=== PATIENT | female | born 1965 ===

== ENCOUNTER 2016-08-15 06:41 | Day surgery (SDC) | payer BC ==
[2016-08-14 10:33] VITALS: BMI 38.5
[2016-08-15] MEDS ORDERED: Lactated Ringer's 1,000 ML IV ONE (09:20)
[2016-08-15] MEDS ORDERED: Midazolam 2 MG/2 ML VIAL ONE (09:23)
[2016-08-15] MEDS ORDERED: Propofol 10 mg/ml Inj (20 ML) ONE (09:23)
--- NOTE | 2016-08-15 10:01 | PCM.SURG1 ---
Surgeon's Initial Post Op Note - Surgeon's Notes Surgeon: zahida Bean mD Electric Meter Tester: none Type of Anesthesia: General LMA Pre-Operative Diagnosis: Abnormla uteirne bleeding Operative Findings: 10-12 week size enlarged uteurs, anterverted, bilateral ostial visuzlated, enlarged submucodsal myoma 100% protruding into cavity 6cm+. Fluid deficits 2000ml, urine output 30cc clear yellow urine Post-Operative Diagnosis: Submucosal myoma, abnormal uterine bleeding Operation Performed: Hysteroscopic myomecotmy, Fractional dilatin and currettage Specimen/Specimens Removed: endocervical currettings, endometrial currettings/ submucosal myoma Estimated Blood Loss: EBL {In ML}: 10 Blood Products Given: N/A Drains Used: No Drains Post-Op Condition: Good Date of Surgery/Procedure: 08/15/16 Time of Surgery/Procedure: 09:25
[2016-08-15 10:36] VITALS: O2SAT 100
[2016-08-15 11:36] VITALS: BP 130/52; PULSE 79; RESP 18; TEMP 96.7
--- NOTE | 2016-08-15 13:08 | OP ---
PROCEDURE DATE: 08/15/2016 SURGEON: Dr. Alexus Bean. MATERIAL EXPEDITER: None. TYPE OF ANESTHESIA: General LMA. PREOPERATIVE DIAGNOSIS: Abnormal uterine bleeding. POSTOPERATIVE DIAGNOSES: Abnormal uterine bleeding, submucosal myoma. OPERATIVE FINDINGS: Ten week size, enlarged uterus, anteverted. Bilateral ostia visualized. A larg e submucosal myoma 100% protruding into the cavity 6 cm plus. FLUID DEFICIT: 2000 mL. URINE OUTPUT: 30 mL of clear yellow urine. OPERATION PERFORMED: Hysteroscopic myomectomy, fractional dilation and curettage. SPECIMEN REMOVED: Endocervical curettings, endometrial curettings/submucosal myoma. ESTIMATED BLOOD LOSS: 10 mL. BLOOD PRODUCTS: None. COMPLICATIONS: None. DESCRIPTION OF PROCEDURE: The patient was taken to operating room where she was given general anesth esia. Once this was found adequate, she was positioned on the operating table in dorsal supine posit ion with the legs ____. The patient was then prepped and draped in the usual normal sterile fashion. ____ correct patient and correct procedure. A bimanual exam was performed with above ____ drained the bladder. Adams retractor was placed in the anterior, posterior fornix of vagina and the cervix wa s adequately visualized. A single tooth tenaculum was placed on the anterior lip of the cervix and e ndocervical curettings were obtained with a Tessie curet and sent to pathology on [facility]. The uter us was then sounded and the cervix was sequentially dilated. Initially, there was ____. The cervix was carefully dilated. ____ was introduced under direct visualization using normal saline as the dis tention media via the MyoSure scope. There was a large submucosal myoma noted to be protruding withi n the endometrial cavity, filling up 90% of it. Behind it, bilateral ostia were visualized. Followi ng this, the MyoSure ____ under direct visualization and this ____ 70%. There was some myoma remaini ng; however, due to the fluid deficit of 2000 mL, it felt like it was in the ____ to abort the proced ure at that point. There was good hemostasis noted and all instruments were removed. The single too th tenaculum was removed. There was bleeding ____ tenaculum. All instruments were removed. At the end of the procedure, all needle, sponge and instrument counts were noted to be correct x 2. The gunnar duggan tolerated the procedure well and was transferred to recovery room in stable condition. Alexus Bean MD cc: [id number] TT: 08/15/2016 12:25:01 tn
--- NOTE | 2016-08-29 10:48 | OP ---
PROCEDURE DATE: 08/15/2016 SURGEON: Dr. Alexus Bean INFECTION CONTROL PRACTITIONER: None. TYPE OF ANESTHESIA: General LMA. PREOPERATIVE DIAGNOSIS: Abnormal uterine bleeding. POSTOPERATIVE DIAGNOSES: Submucosal myoma, abnormal uterine bleeding. OPERATIVE FINDINGS: Ten weeks size, enlarged uterus, anteverted. Bilateral ostia visualized. A lar ge submucosal myoma 100% protruding into the cavity 6 cm plus. FLUID DEFICIT: 2000 mL. URINE OUTPUT: 30 mL of clear yellow urine. OPERATION PERFORMED: Hysteroscopic myomectomy, fractional dilation and curettage. SPECIMEN REMOVED: Endocervical curettings, endometrial curettings, submucosal myoma. ESTIMATED BLOOD LOSS: 10 mL. BLOOD PRODUCTS: None. COMPLICATIONS: None. The patient was taken to the operating room where she was given general anesthesia. Once this was fo und to be adequate, she was positioned on the operating table in dorsal supine position with legs sup ported using stirrups. The patient was then prepped and draped in the usual normal sterile fashion. Timeout was performed to confirm correct patient and correct procedure. Bimanual exam was performed with the above-mentioned findings. Red rubber catheter was inserted via the urethra to drain the bl adder. Adams retractor was placed in the anterior, posterior fornix of the vagina. The cervix was ad equately visualized. A single tooth tenaculum was placed on the anterior lip of the cervix and endoc ervical curettings were obtained with a Markian curette and sent to pathology on [facility]. The uterus was then sounded to 8 cm, which was sequentially dilated to allow for introduction of the MyoSure hy steroscope under direct visualization using normal saline as the distending media. Upon visualizatio n, there was a large submucosal myoma noted to be within the entire cavity. The MyoSure device was t hen inserted under direct visualization and the submucosal myoma was carefully resected. Due to the fluid deficit, a small portion of the myoma was not able to be resected, approximately 2 cm. The hys teroscope was then removed. A gentle curettage was done 360 degrees until a gritty texture was noted . There was good hemostasis noted. The single tooth tenaculum was removed. There was good hemostas is at the tenaculum puncture sites. All instruments were removed. At the end of the procedure, all needle, sponge and instrument counts were noted to be correct x 2. The patient tolerated the procedu re well and was taken to recovery in stable condition. Alexus Bean MD cc: [id number] TT: 08/29/2016 10:47:59 en
--- NOTE | 2016-09-11 06:34 | OP ---
PROCEDURE DATE: 08/15/2016 SURGEON: Dr. Alexus Bean. VICE PRESIDENT PRECISION MARKET INSIGHTS: None. TYPE OF ANESTHESIA: General LMA. PREOPERATIVE DIAGNOSIS: Abnormal uterine bleeding. OPERATIVE FINDINGS: A 10-12 week size enlarged uterus, anteverted. Bilateral ostia visualized. A l arge submucosal myoma about 4-5 cm 100% protruding into cavity closer to 6 cm. FLUID DEFICIT: 2000 mL. URINE OUTPUT: 30 mL of clear yellow urine. POSTOPERATIVE DIAGNOSIS: Submucosal myoma, abnormal uterine bleeding. OPERATION PERFORMED: Hysteroscopic myomectomy, fractional dilation and curettage. SPECIMEN REMOVED: Endocervical curettings, endometrial curettings, submucosal myoma. ESTIMATED BLOOD LOSS: 10 mL. BLOOD PRODUCTS: None. COMPLICATIONS: None. DESCRIPTION OF PROCEDURE: The patient was taken to the operating where she was given general anesthe padmaja. Once found be adequate, she was placed on the operating table in dorsal supine position with le gs supported using stirrups. The patient was then prepped and draped in the usual normal sterile fas hion. Bimanual exam with above-mentioned findings. Red rubber catheter was inserted into the urethr a to drain the bladder. Following this, a Adams retractor was placed in the anterior, posterior forni x of the vagina and cervix was adequately visualized. A single-tooth tenaculum was placed on the ant erior lip of the cervix and endocervical curettings were obtained with a Tessie curet and sent to pathology on [facility]. The uterus was then attempted to be sounded; however, due to resistance, was car efully dilated. Following this, the uterus was sounded and hysteroscope was then introduced under di rect visualization using normal saline as the distending media. Upon visualization, there was a mass /myoma noted to be protruding with the entire cavity. Behind the mass were bilateral ostia visualize d. The MyoSure device was then inserted under direct visualization and the myoma was then resected a pproximately 70%. Due to the fluid deficit, the procedure was then aborted. Following this, a gentl e curettage was done 360 degrees. Specimens removed. The single-tooth tenaculum was then removed wi th good hemostasis at the tenaculum puncture sites. All instruments were removed. Bimanual exam was performed. Good hemostasis was noted. All instruments were removed. At the end of the procedure, all needle, sponge and instrument counts were noted to be correct x 2. The patient tolerated the pro cedure and was transferred to the recovery room in stable condition. Alexus Bean MD cc: [id number] TT: 09/11/2016 06:33:42 tn
== END 2016-08-15 11:40 | disposition home or self-care (01) ==
LOC: MERGE 06:41 → C.SDS 06:41
PROVIDERS: ATTEND Obstetrics & Gynecology
DX: D25.0 Submucous leiomyoma of uterus (principal)
CPT/HCPCS: 58545; 88305; J2250; J2704; J3010; J7120

== ENCOUNTER 2017-05-22 06:12 | Inpatient (IN) | payer BC ==
[2017-04-20 10:49] VITALS: BMI 38.5
[2017-05-22] MEDS ORDERED: Propofol 10 mg/ml Inj (20 ML) ONE ×2 (08:05→11:00)
[2017-05-22] MEDS ORDERED: Succinylcholine Chloride 20 mg/ml Syr (5 ml) IV ONE (08:05)
[2017-05-22] MEDS ORDERED: Midazolam 2 MG/2 ML VIAL ONE (08:05)
[2017-05-22] MEDS ORDERED: Rocuronium 10 mg/ml (5 ml) ONE (08:06)
[2017-05-22] MEDS ORDERED: Bupivacaine HCl 0.25% PF (10 ml) Inj ONE ×2 (08:07)
[2017-05-22] MEDS ORDERED: ceFAZolin IV 2 gm in Dextrose 2 GM/50 ML BAG IVPB ONE (08:08)
[2017-05-22] MEDS ORDERED: Lactated Ringer's 1,000 ML IV ONE ×3 (08:09→11:45)
[2017-05-22] MEDS ORDERED: Lidocaine 4% (Laryng-O-Jet) Kit MM ONE (09:05)
[2017-05-22] MEDS ORDERED: ePHEDrine 50 mg/ml Inj ONE (09:23)
[2017-05-22] MEDS ORDERED: Methylene Blue 10 mg/mL(10ml) IV ONE (10:33)
[2017-05-22] MEDS ORDERED: Neostigmine Methylsulfate 3mg/3ml Syringe IV ONE (10:33)
[2017-05-22] MEDS ORDERED: Morphine 4 MG/ML VIAL ONE (10:33)
--- NOTE | 2017-05-22 11:24 | PCM.SURG1 ---
Surgeon's Initial Post Op Note - Surgeon's Notes Surgeon: Alexus Bean MD Motor Equipment Lieutenant: Craig Lugo MD Type of Anesthesia: General Endo Pre-Operative Diagnosis: Abnormal uterine bleeding, pelvic pain, sympoatmic fibroid utuers Operative Findings: 12 week size uteurs, mutkpe myoma enlarge 10 cm fundal myoma 3cm serosal myoma, lower uteirn segment myoma, short truncated fallopian tubes (hx of ectopic), normal appearing ovares, bilateral uretrual jets on cystsopcy. Dr Craig Lugo was surgical assistan and present for entire case and esssential in starting diagnostic laprasiocpy converting to open , gaiign access, performing hysterecotmy, obtainign hemostasis, cystsopyc , closing , and was prsent for entire case. upon dx laparsaciopy, multpile myomas noted along anterior and lower uterine segment with poor visibity along cervical bldder delineation and deciion made to open Post-Operative Diagnosis: same as above Operation Performed: Diagnsotic laparsocpy converted to open, total abdominal hysterectomy, cystsocopy Specimen/Specimens Removed: uterus, cervix Estimated Blood Loss: EBL {In ML}: 350 Blood Products Given: N/A Drains Used: No Drains Date of Surgery/Procedure: 05/22/17 Time of Surgery/Procedure: 08:00
[2017-05-22] MEDS ORDERED: DiphenhydrAMINE 50 mg/ml Inj IVP PRN (17:02)
[2017-05-22] MEDS: Lactated Ringer's 1,000 ML IV SCH (17:24)
[2017-05-22] MEDS: ceFAZolin IV 1 gm in Dextrose 1 GM/50 ML BAG IVPB SCH (19:24)
[2017-05-22] MEDS ORDERED: Oxycodone/Acetaminophen 5/325 mg Tab PO PRN (20:17)
[2017-05-22] MEDS: Oxycodone/Acetaminophen 5/325 mg Tab PO PRN (20:39)
[2017-05-22] MEDS: Simethicone 80 mg Chewtab PO SCH (22:00)
[2017-05-23] MEDS: ceFAZolin IV 1 gm in Dextrose 1 GM/50 ML BAG IVPB SCH ×2 (00:15→09:01)
[2017-05-23 00:23] VITALS: PULSE 66
--- NOTE | 2017-05-23 02:50 | OP ---
PROCEDURE DATE: 05/22/2017 SURGEON: Alexus Bean MD. HEALTHCARE ADMINISTRATIVE ASSISTANT: Craig Lugo MD. TYPE OF ANESTHESIA: General endotracheal. PREOPERATIVE DIAGNOSIS: Abnormal uterine bleeding, pelvic pain, symptomatic fibroid uterus. POSTOPERATIVE DIAGNOSIS: Abnormal uterine bleeding, pelvic pain, symptomatic fibroid uterus. OPERATIVE FINDINGS: A 12-week size uterus, multiple myomas, [id number] cm fundal myoma, 3 cm serosal myoma, lower uterine segment myoma, short truncated fallopian tubes, history of ectopic, normal-appearing ovaries, bilateral ureteral jets visualized from cystoscopy. Dr. Craig Lugo was manager surgical who was present for the entire case and essential in inserting diagnostic laparoscope, converting to open, gaining access for performing hysterectomy, obtaining hemostasis, cystoscopy, closing all layers. Upon initial entry of diagnostic laparoscope, multiple myomas were noted along the anterior and lower uterine segment. With poor visibility along cervical bladder delineation with surgeon not feeling comfortable proceeding laparoscopically, decision was made to open. OPERATIION PERFORMED: Diagnostic laparoscopy, converted to open; total abdominal hysterectomy; cystoscopy. SPECIMEN REMOVED: Uterus and cervix. ESTIMATED BLOOD LOSS: 350 mL. BLOOD PRODUCTS: None. COMPLICATIONS: None. DESCRIPTION OF PROCEDURE: The patient was taken to the operating where she was given general anesthesia. Once found to be adequate, she was placed on the operating table in dorsal supine position with legs supported using stirrups. The patient was then prepped and draped in the usual sterile fashion. A time-out confirmed correct patient and correct procedure. Bimanual exam was performed with the above-mentioned findings. The Lai catheter was inserted into the urethra to drain the bladder. A HUMI uterine Tonie manipulator cup was then inserted over the cervix. Following this, surgeon then re-gloved and attention was then turned to the abdomen. A 5 mm infraumbilical skin incision was made after giving approximately 2 mL of 0.5 Marcaine. The skin was then tented up with a towel clip and a Veress needle was then inserted. Confirmation was then placed with a normal saline test. CO2 gas was then insufflated to a normal opening pressure and abdomen was then insufflated to 15 mmHg. Following this, the Veress needle was then removed and a 5-mm trocar with laparoscope was then inserted under direct visualization. Upon visualization in the peritoneal cavity, there was an enlarged uterus with an enlarged 10 cm anterior fundal myoma in addition to anterior lower uterine segment myoma in close proximity to the bladder, unable to clearly delineate surfaces. A short truncated tube noted which was consistent with patient's prior ectopic and two ovaries that were visualized which appeared normal. At that point, upon careful inspection, the surgeon did not feel comfortable operating laparoscopically and decision was made to open as high risk of injury to bladder. There was also some bowel overlying the lower uterine segment, which was slightly adherent. Following this, the laparoscope was then removed and the abdomen was then desufflated. The HUMI uterine Tonie manipulator was then removed from the cervix. A Pfannenstiel skin incision was made with a scalpel, carried down to the underlying layer of fascia with Bovie. The fascia was incised in the midline and incision was extended laterally with the Bovie. The inferior aspect of the fascial incision was grasped with Allis and Rigoberto clamps and the underlying rectus muscle resected off bluntly. Attention was then turned to the superior aspect of the incision where with a similar fashion it was grasped with Allis and Rigoberto clamps and underlying rectus muscle resected off bluntly. The rectus was then bluntly in the midline. The peritoneum was identified and the clear space entered bluntly. Incision was extended laterally and superiorly until there was good visualization of the uterus. There was a large myoma noted to be protruding anteriorly. Following this, the uterus was then identified and grasped on the fundus with a tenaculum and also a corkscrew with upward traction. Once inside the abdominal cavity, a self-retaining retractor O'Antonio-O' Henson was then placed carefully to expose the pelvic cavity with three lap sponges. Following this, the round ligaments on either side were identified and individually dissected and cauterized using the LigaSure 5 mm device. This then allowed us to create a bladder flap by both blunt and sharp dissection using the Metzenbaum scissors. The portion of the fallopian tube present and ovarian ligaments were isolated through the broad ligament from the uterine body and ligated with 0 Vicryl suture and divided as well. We then skeletonized the uterine vessels on either side and carefully dissected the bladder flap anteriorly, as there was the myoma noted to be with close attention to obtain hemostasis. Posteriorly, the peritoneum was dissected downward towards the uterosacral ligament. Ajit clamps were then placed at the each isthmic portion of the cervical body junction where the uterine arteries have jointed the uterus. They were clamped, ligated, and divided using 0 Vicryl suture. The remaining of the uterus was then removed by clamp, cut, ligation technique using 0 Vicryl on all major pedicles. With removal of the uterus and the cervix, the vaginal cuff then closed in an usual manner using 0 Vicryl suture in interrupted manner. Hemostasis was then inspected and secured throughout the entire area. The abdomen was irrigated and there was good hemostasis. Peritoneum was then closed over the vaginal cuff using 2-0 Vicryl suture in a running continuous manner. The ovaries were left inside and suspended to the side wall. The laps and sponges were then removed and the self-retaining retractor was removed. The patient tolerated the procedure nicely. There were no complications associated with the surgical procedure at this point. The sponge counts were noted to be correct x2. The Lai catheter was inspected and urine was clear to be noted. Following this, after closure of the peritoneum, the rectus was reapproximated with 2-0 chromic in interrupted manner. The fascia was reapproximated and closed with 0 Vicryl in a running continuous manner. The subcutaneous layer was reapproximated and closed with 3-0 Monocryl in a running subcuticular fashion. The abdomen was then prepped, irrigated and cleaned. Attention was then turned to the perineum and cystoscopy was performed. The Lai catheter was removed. A 21 Spanish cystoscope was then inserted under camera vision. The urethra was unremarkable. The scope was passed into the bladder. The bladder mucosa appeared normal throughout. There was no sutures or perforations or cystotomy noted. Bilateral ureteral jets were noted from both the right and left side. The cystoscope was then removed and a new Lai catheter was then inserted. At the end of the procedure, all needle, sponge, and instrument counts were noted as correct x2. The patient tolerated the procedure well and was sent to the recovery room in stable condition. Alexus Bean MD
[2017-05-23] MEDS: Lactated Ringer's 1,000 ML IV SCH (03:20)
[2017-05-23] MEDS: Simethicone 80 mg Chewtab PO SCH (06:28)
[2017-05-23 08:04] VITALS: BP 106/71; RESP 18; TEMP 98.8; O2SAT 98
[2017-05-23 08:09] LABS: BASO % 0.1 % (0.0-2.0); EOS % 0.1 % (0.0-4.0); HEMOGLOBIN 10.3 g/dL (11.0-16.0); LYMPH # 1.9 K/uL (1.0-4.3); LYMPH % 13.6 % (20.0-40.0); MEAN CELL VOLUME 90.3 fL (81.0-99.0); MEAN CORPUSCULAR HEMOGLOBIN 29.5 pg (27.0-31.0); MEAN CORPUSCULAR HGB CONC 32.7 g/dL (33.0-37.0); MEAN PLATELET VOLUME 9.1 fL (7.2-11.7); MONO # 0.8 K/uL (0.0-0.8); MONO % 5.4 % (0.0-10.0); NEUT # 11.2 K/uL (1.8-7.0); NEUT % 80.8 % (50.0-75.0); RBC 3.48 Mil/uL (3.80-5.20); RED CELL DISTRIBUTION WIDTH 15.1 % (11.5-14.5); WHITE BLOOD COUNT 13.9 K/uL (4.8-10.8)
[2017-05-23 08:35] LABS: ALBUMIN 3.4 g/dL (3.5-5.0); ALT/SGPT 22 U/L (9-52); AST/SGOT 27 U/L (14-36); BLOOD UREA NITROGEN 8 mg/dL (7-17); CALCIUM 8.3 mg/dl (8.6-10.4); GFR AFRICAN-AMERICAN > 60; GFR NON-AFRICAN AMERICAN > 60
[2017-05-23 08:39] LABS: ALB/GLOB RATIO 1.2 (1.0-2.1)
[2017-05-23] MEDS ORDERED: ceFAZolin IV 2 gm in Dextrose 2 GM/50 ML BAG IVPB ONE (08:51)
[2017-05-23] MEDS: Oxycodone/Acetaminophen 5/325 mg Tab PO PRN (11:31)
--- NOTE | 2017-05-23 16:00 | CP.PCM.PN ---
Subjective - Date & Time of Evaluation Date of Evaluation: 05/23/17 Time of Evaluation: 06:30 - Subjective Subjective: PT seen and examiend adn reports pain better controlled with pain medcaion. pt ambuaitng out of bed to chair, not yet passing flatus, tolerating diet, denies any fever, chills, nasuse, vomiting, cp, sob, vaignal bleeding, discharge. Objective - Vital Signs/Intake and Output Vital Signs (last 24 hours): Temp Pulse Resp BP Pulse Ox 98.8 F 66 18 106/71 98 05/23/17 08:00 05/23/17 08:00 05/23/17 08:00 05/23/17 08:00 05/23/17 08:00 Intake and Output: 05/23/17 05/23/17 06:59 18:59 Intake Total 1185 Output Total 420 Balance 765 - Labs Labs: 05/23/17 07:56 05/23/17 07:56 - Constitutional Appears: Well, Non-toxic - Head Exam Head Exam: ATRAUMATIC, NORMAL INSPECTION - Eye Exam Eye Exam: EOMI Pupil Exam: NORMAL ACCOMODATION, PERRL - ENT Exam ENT Exam: Mucous Membranes Moist, Normal Exam - Neck Exam Neck Exam: Full ROM, Normal Inspection - Respiratory Exam Respiratory Exam: Clear to Ausculation Bilateral, NORMAL BREATHING PATTERN - Cardiovascular Exam Cardiovascular Exam: REGULAR RHYTHM, +S1, +S2 - GI/Abdominal Exam GI & Abdominal Exam: Normal Bowel Sounds Additional comments: soft, non tendern, no guarding, no rebound tendernss, no rigidty incision c/d/i no vaginal bleeding - Exam External exam: NORMAL EXTERNAL EXAM - Extremities Exam Extremities Exam: Full ROM, Normal Capillary Refill Additional comments: negative homans sign, no calf tenderness - Back Exam Back Exam: NORMAL INSPECTION - Neurological Exam Neurological Exam: Alert, Awake, CN II-XII Intact, Normal Gait, Oriented x3 - Psychiatric Exam Psychiatric exam: Normal Affect - Skin Skin Exam: Dry, Normal Color, Warm Assessment and Plan (1) Fibroid uterus Assessment & Plan: 51 y/o s/p Dx Laparscopy converted to open, JEF, cystsocopy POD #1 1. Pain Managmaent: po percoet/motrin 2. Advance diet as toelrated 3. Encuorage ambatin, incentive spirometer 4. bowel regimen 5. AM labs addenndm: pt reports assing flatus , otelraitnge regular diet, requesting ddicshage home dc home f/u 1 week precautions given Status: Acute
--- NOTE | 2017-05-23 16:06 | CP.PCM.DIS ---
Provider - Provider Date of Admission: 05/22/17 11:18 Attending physician: Alexus Bean MD Time Spent in preparation of Discharge (in minutes): 30 Diagnosis - Discharge Diagnosis (1) Fibroid uterus Status: Acute Priority: Low Hospital Course - Lab Results Lab Results: Most Recent Lab Values WBC 13.9 K/uL (4.8-10.8) H D 05/23/17 07:56 RBC 3.48 Mil/uL (3.80-5.20) L 05/23/17 07:56 Hgb 10.3 g/dL (11.0-16.0) L 05/23/17 07:56 Hct 31.4 % (34.0-47.0) L 05/23/17 07:56 MCV 90.3 fL (81.0-99.0) 05/23/17 07:56 MCH 29.5 pg (27.0-31.0) 05/23/17 07:56 MCHC 32.7 g/dL (33.0-37.0) L 05/23/17 07:56 RDW 15.1 % (11.5-14.5) H 05/23/17 07:56 Plt Count 317 K/uL (130-400) 05/23/17 07:56 MPV 9.1 fL (7.2-11.7) 05/23/17 07:56 Neut % (Auto) 80.8 % (50.0-75.0) H 05/23/17 07:56 Lymph % (Auto) 13.6 % (20.0-40.0) L 05/23/17 07:56 [place] % (Auto) 5.4 % (0.0-10.0) 05/23/17 07:56 Eos % (Auto) 0.1 % (0.0-4.0) 05/23/17 07:56 Baso % (Auto) 0.1 % (0.0-2.0) 05/23/17 07:56 Neut # 11.2 K/uL (1.8-7.0) H 05/23/17 07:56 Lymph # 1.9 K/uL (1.0-4.3) 05/23/17 07:56 [place] # 0.8 K/uL (0.0-0.8) 05/23/17 07:56 Eos # 0.0 K/uL (0.0-0.7) 05/23/17 07:56 Baso # 0.0 K/uL (0.0-0.2) 05/23/17 07:56 Sodium 131 mmol/L (132-148) L 05/23/17 07:56 Potassium 3.7 mmol/L (3.6-5.2) 05/23/17 07:56 Chloride 97 mmol/L (98-107) L 05/23/17 07:56 Carbon Dioxide 28 mmol/L (22-30) 05/23/17 07:56 Anion Gap 10 (10-20) 05/23/17 07:56 BUN 8 mg/dL (7-17) 05/23/17 07:56 Creatinine 0.7 mg/dL (0.7-1.2) 05/23/17 07:56 Est GFR ( Amer) > 60 05/23/17 07:56 Est GFR (Non-Af Amer) > 60 05/23/17 07:56 Random Glucose 124 mg/dL (65-105) H 05/23/17 07:56 Calcium 8.3 mg/dl (8.6-10.4) L 05/23/17 07:56 Total Bilirubin 0.7 mg/dL (0.2-1.3) 05/23/17 07:56 AST 27 U/L (14-36) 05/23/17 07:56 ALT 22 U/L (9-52) 05/23/17 07:56 Alkaline Phosphatase 49 U/L (38-126) 05/23/17 07:56 Total Protein 6.4 g/dL (6.3-8.3) 05/23/17 07:56 Albumin 3.4 g/dL (3.5-5.0) L 05/23/17 07:56 Globulin 3.0 gm/dL (2.2-3.9) 05/23/17 07:56 Albumin/Globulin Ratio 1.2 (1.0-2.1) 05/23/17 07:56 Blood Type O NEGATIVE 05/22/17 07:01 Antibody Screen Negative 05/22/17 07:01 - Hospital Course Hospital Course: 51 yo s/p dx lap covertd to open due to concerns of bladder adhesions JEF normal post op course, ambuaitng, pain conrolled, toelratinge regualr diet, - Date & Time of H&P Date of H&P: 05/22/17 Time of H&P: 07:00 Discharge Exam - Head Exam Head Exam: ATRAUMATIC, NORMAL INSPECTION - Eye Exam Eye Exam: EOMI, Normal appearance Pupil Exam: NORMAL ACCOMODATION - Respiratory Exam Respiratory Exam: Clear to PA & Lateral - Cardiovascular Exam Cardiovascular Exam: REGULAR RHYTHM, +S1, +S2 - GI/Abdominal Exam GI & Abdominal Exam: Normal Bowel Sounds, Unremarkable - Rectal Exam Rectal Exam: NORMAL INSPECTION - Exam Additional comments: sfot, nt, nd no guarding, no rebound tendnereses, no rigidty, +BS incsiocn c/d/i - Extremities Exam Additional comments: neative jarvis's sign, no calf tnednerss - Back Exam Back exam: absent: CVA tenderness (L), CVA tenderness (R), FULL ROM, muscle spasm, NORMAL INSPECTION, paraspinal tenderness, rash noted, tenderness, vertebral tenderness - Neurological Exam Neurological exam: Alert, CN II-XII Intact - Psychiatric Exam Psychiatric exam: Normal Affect, Normal Mood - Skin Skin Exam: Dry, Normal Color Discharge Plan - Discharge Medications Prescriptions: oxyCODONE/Acetaminophen [Percocet 5/325 mg Tab] 1 tab PO Q4H PRN #20 tab PRN Reason: Pain, Severe (8-10) - Follow Up Plan Condition: GOOD Disposition: HOME/ ROUTINE Instructions: Abdominal Hysterectomy (DC), Iron Rich Diet (DC), Surgical Site Infections (DC), Wound Healing and Your Diet (DC), Care For Your Absorbable Stitches (DC) Additional Instructions: followup 1 week, if severe pain, bleeding, fever, chills, nausa, vomiting, call md roa go to er
== END 2017-05-23 12:04 | disposition home or self-care (01) | DRG 743 ==
LOC: C.SDS 06:12 → EDSTATUS 07:45 → C.4M 11:18
PROVIDERS: ADMIT Obstetrics & Gynecology; ATTEND Obstetrics & Gynecology
PROC: 0TJB8ZZ Inspection of Bladder, Via Natural or Artificial Opening Endoscopic (ICD-10-PCS; 2017-05-22)
PROC: 0UT90ZZ Resection of Uterus, Open Approach (ICD-10-PCS; principal; 2017-05-22 07:45)
PROC: 0UJD4ZZ Inspection of Uterus and Cervix, Percutaneous Endoscopic Approach (ICD-10-PCS; 2017-05-22 07:45)
DX: D25.2 Subserosal leiomyoma of uterus (principal); N93.8 Other specified abnormal uterine and vaginal bleeding; Z53.31 Laparoscopic surgical procedure converted to open procedure